=== PATIENT | female | born 1960 | race Caucasian/White ===

== ENCOUNTER 2018-01-03 14:49 | Emergency (ER) | payer SELFPAY ==
[2018-01-03] MEDS ORDERED: METOPROLOL TARTRATE PF/INJ 5 MG/5 ML SDV IV ONE (15:31)
[2018-01-03] MEDS ORDERED: ASPIRIN 81 MG TABLET, CHEWABLE PO ONE (15:32)
--- NOTE | 2018-01-03 15:33 | ER Document Report ---
ED Cardiac - General Mode of Arrival: Ambulatory Information source: Patient TRAVEL OUTSIDE OF THE [place] IN LAST 30 DAYS: No <EDILIA KENDRICK - Last Filed: 01/03/18 15:47> <DAYANNA NÚÑEZ - Last Filed: 01/03/18 17:23> - General Chief Complaint: Chest Pain Stated Complaint: CHEST PAIN Time Seen by Provider: 01/03/18 15:21 Notes: 57 y.o female with HTN and type 2 DM presents to the ED with CP of onset around 0830 this morning and the onset of SOB about an hour ago. Pt reports that she currently is having CP and notes that her pain is worse to her center chest and slightly to the right of her sternum. She describes her pain as a constant pain that fluctuates in severity. Pt reports some recent intermittent chest pains which she reports would relieve quickly and seem to be positional as she describes them as "twinges" when she moved. She states that her pain today has been more severe as compared to her recent pains and is without any relief. Pt denies taking any medications for her HTN or DM because she is uninsured for the past year. (EDILIA KENDRICK) - Related Data Allergies/Adverse Reactions: codeine Allergy (Verified 01/03/18 14:52) TRAN Inhibitors Adverse Reaction (Verified 01/03/18 14:52) Past Medical History - General Information source: Patient - Social History Smoking Status: Current Every Day Smoker Cigarette use (# per day): Yes - 6 cigarettes/day Chew tobacco use (# tins/day): No Smoking Education Provided: Yes Frequency of alcohol use: None Drug Abuse: None Family History: Reviewed & Not Pertinent - Past Medical History Cardiac Medical History: Reports: Hx Hypertension Endocrine Medical History: Reports: Hx Diabetes Mellitus Type 2 Past Surgical History: Reports: Hx Appendectomy, Hx Cholecystectomy, Hx Hysterectomy, Hx Tonsillectomy - Immunizations Hx Diphtheria, Pertussis, Tetanus Vaccination: No <EDILIA KENDRICK - Last Filed: 01/03/18 15:47> Review of Systems - Review of Systems Constitutional: No symptoms reported EENT: No symptoms reported Cardiovascular: See HPI, Chest pain Respiratory: See HPI, Short of breath Gastrointestinal: No symptoms reported Genitourinary: No symptoms reported Female Genitourinary: No symptoms reported Musculoskeletal: No symptoms reported Skin: No symptoms reported Hematologic/Lymphatic: No symptoms reported Neurological/Psychological: No symptoms reported -: Yes All other systems reviewed and negative <EDILIA KENDRICK - Last Filed: 01/03/18 15:47> Physical Exam <EDILIA KENDRICK - Last Filed: 01/03/18 15:47> <NIYADAYANNA - Last Filed: 01/03/18 17:23> - Vital signs Vitals: Temp Pulse Resp BP Pulse Ox 97.7 F 114 H 20 180/84 H 93 01/03/18 14:57 01/03/18 14:57 01/03/18 14:57 01/03/18 14:57 01/03/18 14:57 - Notes Notes: Physical Exam: General: Alert, appears well. HEENT: Normocephalic. Atraumatic. PERRL. Extraocular movements intact. Oropharynx clear. Neck: Supple. Non-tender. Respiratory: No respiratory distress. Clear and equal breath sounds bilaterally. Cardiovascular: Tachycardic rate and regular rhythm. LT lateral pectoralis muscle somewhat tender to palpate. Anterior chest wall (other than LT lateral pectoralis muscle) is non tender. Abdominal: Normal Inspection. Non-tender. No distension. Normal Bowel Sounds. Back: Non-tender. No deformity or step off. Extremities: Moves all four extremities. Upper extremities: Normal inspection. Normal ROM. Lower extremities: Normal inspection. No edema. Normal ROM. Neurological: Normal cognition. AAOx3. Normal speech. Psychological: Normal affect. Normal Mood. Skin: Warm. Dry. Normal color. (EDILIA KENDRICK) Course <EDILIA KENDRICK - Last Filed: 01/03/18 15:47> - Laboratory Result Diagrams: 01/03/18 15:45 01/03/18 15:45 - Diagnostic Test Radiology reviewed: Image reviewed, Reports reviewed - Chest x-ray is unremarkable - EKG Interpretation by Mi EKG shows normal: Sinus rhythm, [place], Intervals, QRS Complexes. abnormal: ST-T Waves - Anterolateral ST depression Rate: Tachycardia - 105 [place]/QRS: IVCD When compared to previous EKG there are: Changes noted <DAYANNA NÚÑEZ - Last Filed: 01/03/18 17:23> - Re-evaluation Re-evalutation: 01/03/18 17:22 Cardiac connection at the [facility] was consulted. They are accepting the patient on behalf of Dr. Cobos and have requested the demographics page. (DAYANNA NÚÑEZ ) - Vital Signs Vital signs: Temp Pulse Resp BP Pulse Ox 97.7 F 114 H 34 H 143/83 H 96 01/03/18 14:57 01/03/18 14:57 01/03/18 16:46 01/03/18 16:46 01/03/18 16:46 - Laboratory Laboratory results interpreted by me: 01/03/18 01/03/18 15:45 15:45 WBC 11.5 H Plt Count 508 H Seg Neutrophils % 79.1 H Absolute Neutrophils 9.1 H Potassium 3.4 L Glucose 217 H Discharge <EDILIA KENDRICK - Last Filed: 01/03/18 15:47> <DAYANNA NÚÑEZ - Last Filed: 01/03/18 17:23> - Discharge Clinical Impression: Non-STEMI (non-ST elevated myocardial infarction), Chest pain due to CAD, Noncompliance with medication regimen High blood pressure Qualifiers: Hypertension type: essential hypertension Qualified Code(s): I10 - Essential ( primary) hypertension Hyperglycemia due to type 2 diabetes mellitus Qualifiers: Diabetes mellitus oysterman insulin use: without senior living use Qualified Code(s ): E11.65 - Type 2 diabetes mellitus with hyperglycemia Condition: Fair Disposition: [facility] Scribe Attestation: 01/03/18 15:58 I personally performed the services described in the documentation, reviewed and edited the documentation which was dictated to the scribe in my presence, and it accurately records my words and actions. (DAYANNA NÚÑEZ) Scribe Documentation - Scribe Written by Renato:: Renato Hernandez 01/03/18 1536 acting as scribe for :: Niya <EDILIA KENDRICK - Last Filed: 01/03/18 15:47>
[2018-01-03 15:59] LABS: ABSOLUTE BASOPHILS # (AUTO) 0.1 10^3/uL (0.0-0.2); ABSOLUTE LYMPHOCYTES (AUTO) 1.5 10^3/uL (0.5-4.7); ABSOLUTE MONOCYTES (AUTO) 0.7 10^3/uL (0.1-1.4); ABSOLUTE NEUT (AUTO) 9.1 10^3/uL (1.7-8.2); BASOPHILS % (AUTO) 0.9 % (0-2); EOSINOPHILS % (AUTO) 0.2 % (0-6); HEMATOCRIT 44.5 % (36.0-47.0); HEMOGLOBIN 15.4 g/dL (12.0-15.5); LYMPHOCYTES % (AUTO) 13.3 % (13-45); MEAN CORPUSCULAR HEMOGLOBIN 30.2 pg (27.0-33.4); MEAN CORPUSCULAR HGB CONC 34.7 g/dL (32.0-36.0); MEAN CORPUSCULAR VOLUME 87 fl (80-97); MONOCYTES % (AUTO) 6.5 % (3-13); PLATELET COUNT 508 10^3/uL (150-450); RED CELL DISTRIBUTION WIDTH 13.9 % (11.5-14.0); SEGMENTED NEUTROPHILS % (AUTO) 79.1 % (42-78); TOTAL CELLS COUNTED % (AUTO) 100 %; WHITE BLOOD COUNT 11.5 10^3/uL (4.0-10.5)
--- NOTE | 2018-01-03 16:00 | RADIOLOGY REPORT (SQ) ---
EXAM DESCRIPTION: CHEST SINGLE VIEW COMPLETED DATE/TIME: 01/03/2018 3:50 pm REASON FOR STUDY: CP COMPARISON: 06/18/2016 EXAM PARAMETERS: NUMBER OF VIEWS: One view. TECHNIQUE: Single frontal radiographic view of the chest acquired. RADIATION DOSE: NA LIMITATIONS: None. FINDINGS: LUNGS AND PLEURA: No opacities, masses or pneumothorax. No pleural effusion. MEDIASTINUM AND HILAR STRUCTURES: No masses. Contour normal. HEART AND VASCULAR STRUCTURES: Heart normal in size. Normal vasculature. BONES: No acute findings. HARDWARE: None in the chest. OTHER: No other significant finding. IMPRESSION: NO ACUTE RADIOGRAPHIC FINDING IN THE CHEST. TECHNICAL DOCUMENTATION: JOB ID: [id number] [employer]- All Rights Reserved Reading location - IP/workstation name: [email or web address]
[2018-01-03 16:06] LABS: INTERNATIONAL RATION (INR) 1.04; PROTHROMBIN TIME 14.2 SEC (11.4-15.4)
[2018-01-03 16:19] LABS: ALANINE AMINOTRANSFERASE 22 U/L (9-52); ALBUMIN 3.8 g/dL (3.5-5.0); ALKALINE PHOSPHATASE 94 U/L (38-126); ANION GAP 16 (5-19); ASPARTATE AMINO TRANSFERASE 30 U/L (14-36); BILIRUBIN,DIRECT 0.4 mg/dL (0.0-0.4); BILIRUBIN,TOTAL 0.6 mg/dL (0.2-1.3); BLOOD UREA NITROGEN 17 mg/dL (7-20); CALCIUM 10.1 mg/dL (8.4-10.2); CARBON DIOXIDE 28 mmol/L (22-30); CHLORIDE 98 mmol/L (98-107); CREATINE KINASE 82 U/L (30-135); GLUCOSE 217 mg/dL (75-110); POTASSIUM 3.4 mmol/L (3.6-5.0); SODIUM 142.4 mmol/L (137-145); TOTAL PROTEIN 7.3 g/dL (6.3-8.2)
[2018-01-03 16:43] LABS: CREATINE KINASE MB 1.88 ng/mL (<4.55)
[2018-01-03 16:48] LABS: TROPONIN I 5.69 ng/mL
[2018-01-03] MEDS ORDERED: HEPARIN SODIUM,PORCINE/D5W 25,000 UNIT/250 ML RTUINJ IV PRN (17:15)
[2018-01-03] MEDS ORDERED: HEPARIN SOD (PORCINE) 1,000 UNIT/ML 10 ML VIAL IV ONE (17:15)
[2018-01-03] MEDS ORDERED: METOPROLOL TARTRATE 25 MG TABLET PO ONE (17:23)
[2018-01-03] MEDS ORDERED: POTASSIUM CHLORIDE 20 MEQ/15 ML UDCUP PO ONE (17:31)
[2018-01-03 19:30] LABS: APPEARANCE,URINE CLEAR; BILIRUBIN,URINE NEGATIVE (NEGATIVE); COLOR,URINE YELLOW; GLUCOSE, URINE NEGATIVE (NEGATIVE); KETONES,URINE NEGATIVE (NEGATIVE); LEUKOCYTE ESTERASE,URINE NEGATIVE (NEGATIVE); NITRITE,URINE NEGATIVE (NEGATIVE); PROTEIN,URINE 30 mg/dL (NEGATIVE); URINE SPECIFIC GRAVITY 1.006; UROBILINOGEN,URINE NEGATIVE mg/dL (<2.0)
[2018-01-03 20:01] VITALS: BP 126/84
[2018-01-03] MEDS ORDERED: HEPARIN SOD (PORCINE) 1,000 UNIT/ML 10 ML VIAL IV PRN (20:15)
--- NOTE | 2018-01-03 20:20 | EKG REPORT ---
SEVERITY:- ABNORMAL ECG - SINUS RHYTHM PROBABLE LEFT ATRIAL ABNORMALITY NONSPECIFIC INTRAVENTRICULAR CONDUCTION DELAY INFERIOR INFARCT, AGE INDETERMINATE ST DEPRESSION, CONSIDER ISCHEMIA, ANT LEADS : Confirmed by: Lin Dela Cruz MD 03-Jan-2018 20:19:36
--- NOTE | 2018-01-03 20:20 | EKG REPORT ---
SEVERITY:- ABNORMAL ECG - SINUS RHYTHM NONSPECIFIC INTRAVENTRICULAR CONDUCTION DELAY PROBABLE INFERIOR INFARCT, AGE INDETERMINATE ST DEPRESSION, CONSIDER ISCHEMIA, ANT LEADS : Confirmed by: Lin Dela Cruz MD 03-Jan-2018 20:19:47
--- NOTE | 2018-01-03 20:20 | EKG REPORT ---
SEVERITY:- ABNORMAL ECG - SINUS TACHYCARDIA PROBABLE LEFT ATRIAL ABNORMALITY NONSPECIFIC INTRAVENTRICULAR CONDUCTION DELAY PROBABLE INFERIOR INFARCT, AGE INDETERMINATE CONSIDER POSTERIOR WALL INVOLVEMENT ST DEPRESSION, CONSIDER ISCHEMIA, ANT-LAT LDS : Confirmed by: Lin Dela Cruz MD 03-Jan-2018 20:19:25
== END 2018-01-03 20:16 | disposition short-term general hospital (02) ==
LOC: ER 14:49
DX: I21.4 Non-ST elevation (NSTEMI) myocardial infarction (principal); R07.9 Chest pain, unspecified; I25.10 Atherosclerotic heart disease of native coronary artery without angina pectoris; Z91.14 Patient's other noncompliance with medication regimen; I10 Essential (primary) hypertension; E11.65 Type 2 diabetes mellitus with hyperglycemia; R06.02 Shortness of breath; F17.210 Nicotine dependence, cigarettes, uncomplicated
CPT/HCPCS: 93005; 99285; 96375; 96365; 96366; 36415; 82553; 82550; 85025; 85610; 85730; 80053; 81001; 84484; 71045; 93010; J1644 ×2; J3490